=== PATIENT | female | born 1955 | race Caucasian/White ===

== ENCOUNTER → 2019-06-19 | Outpatient (CLI) | payer MEDICARE, OTHER | LOC: GMA MATASK 12:16 | PROVIDERS: ATTEND Family Medicine | DX: I10 Essential (primary) hypertension (principal) ==

== ENCOUNTER 2019-07-07 14:28 | Emergency (ER) | payer MEDICARE, OTHER ==
--- NOTE | 2019-07-07 15:51 | RAD ---
EXAM DESCRIPTION: Femur,Right (accession [id number]), Knee,Right Complete (accession [id number]) CLINICAL HISTORY: 64 years, Female, medial pain COMPARISON: None TECHNIQUE: Frontal and lateral views of the right femur and three views of the right knee was obtained. FINDINGS/IMPRESSION: Images of the right femur right knee demonstrate changes of right total knee arthroplasty in adequate alignment. An acute right distal femur nondisplaced periprosthetic fracture (medial metaphysis/supracondylar region) is present. No knee dislocation. Small knee joint effusion. Mild osteopenia. Electronically signed by: Keyur Alcantara DO 07/07/2019 3:49 PM CUSTOMER ADVISOR SPECIALIST
--- NOTE | 2019-07-07 15:51 | RAD ---
EXAM DESCRIPTION: Femur,Right (accession [id number]), Knee,Right Complete (accession [id number]) CLINICAL HISTORY: 64 years, Female, medial pain COMPARISON: None TECHNIQUE: Frontal and lateral views of the right femur and three views of the right knee was obtained. FINDINGS/IMPRESSION: Images of the right femur right knee demonstrate changes of right total knee arthroplasty in adequate alignment. An acute right distal femur nondisplaced periprosthetic fracture (medial metaphysis/supracondylar region) is present. No knee dislocation. Small knee joint effusion. Mild osteopenia. Electronically signed by: Keyur Alcantara DO 07/07/2019 3:49 PM PHOTOCOPYING EQUIPMENT REPAIRER
--- NOTE | 2019-07-07 16:16 | ED.PDOC ---
History of Present Illness - General Chief Complaint: Trauma Stated Complaint: Fall Time Seen by Provider: 07/07/19 14:32 Source: patient Exam Limitations: no limitations - History of Present Illness Initial Comments: the patient is a 64-year-old female who was walking yesterday and fell.she has been having pain in her right knee since that time. Pain appears to be in the medial aspect of the right knee. She has a had a right knee replacement 5 or 6 years ago in the past. She does not currently have an orthopedist apparently. She appears to be neurovascularly intact distally. Pain is as she described on palpation located medially. Passive range of motion and active range of motion without weight do not seem to cause much discomfort. Most pain is obtained with weight. she has mild abrasions from the fall but no lacerations that will require any sort of repair. No evidence of any infection. Timing/Duration: unsure Severity: moderate Improving Factors: nothing Worsening Factors: other - weightbearing Associated Symptoms: denies symptoms Allergies/Adverse Reactions: Allergies Codeine Allergy (Verified 07/07/19 14:35) Home Medications: Ambulatory Orders Lecrkeqzcalyk-Rarf-Ejdzglhoag [Fioricet] 1 ea PO Q8H PRN #21 tab 07/07/19 Review of Systems - Review of Systems Constitutional: States: no symptoms reported EENTM: States: no symptoms reported Respiratory: States: no symptoms reported Cardiology: States: no symptoms reported Gastrointestinal/Abdominal: States: no symptoms reported Genitourinary: States: no symptoms reported Musculoskeletal: States: see HPI Skin: States: no symptoms reported Neurological: States: no symptoms reported Endocrine: States: no symptoms reported All other Systems: No Change from Baseline Past Medical History (General) - Patient Medical History Hx Stroke: No Hx Cardiac Disorders: Yes - Hypercholesterolemia Hx Congestive Heart Failure: No Hx Hypertension: Yes Hx Thyroid Disease: Yes Hx Diabetes: No Hx Gastroesophageal Reflux: Yes Hx MRSA: No - Vaccination History Hx Influenza Vaccination: Yes - 2018 Hx Pneumococcal Vaccination: Yes - Social History Hx Tobacco Use: Yes - Quit 2014; Pt vapes Hx Alcohol Use: Yes - Occasional use Family Medical History - Family History Mother Living Status: Hx Cardiac Disease: Yes Physical Exam - Physical Exam General Appearance: Alert, No apparent distress Eye Exam: bilateral normal Ears, Nose, Throat: hearing grossly normal Neck: full range of motion Respiratory: no respiratory distress, no accessory muscle use Cardiovascular/Chest: normal peripheral pulses, no edema, other - egular rate Peripheral Pulses: dorsalis pedis,right: 2+, dorsalis pedis,left: 2+, posterior tibialis,right: 2+, posterior tibialis,left: 2+ Rectal Exam: deferred Extremity: normal range of motion - grossly, no calf tenderness, normal capillary refill, other - see history of present illness. 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 Progress - Progress Progress: 07/07/19 16:18 the patient is a 64-year-old female presenting after a fall yesterday with right knee pain to the medial aspect. X-ray confirms that there is a nondisplaced fracture just above the medial aspect of that knee replacement in the distal femur. The patient has been ambulating on it for a day already. I'm going to make the patient toe-touch weightbearing with crutches. I'm not going to completely immobilize the knee at this time, primarily for balance and fall prevention purposes. I do want her to follow-up with Dr. Cabello as soon as possible this coming week for further evaluation, to see if any further intervention is going to be required either now or down the road. ER warnings were given. Again it has been reiterated that she is not to bear weight of any significance on this leg and certainly not to bend it with any weightbearing. dimple [id number] Departure - Departure Clinical Impression: Femur fracture, left Qualifiers: Encounter type: initial encounter Femur location: distal, unspecified portion F racture type: closed Fracture morphology: unspecified fracture morphology Qualified Code(s): S72.402A - Unspecified fracture of lower end of left femur, initial encounter for closed fracture Disposition: Discharge to Home or Self Care Condition: Fair Departure Forms: ED Discharge - Pt. Copy, Patient Portal Self Enrollment Diet: regular diet Activity: no pushing/pulling with affected limb Referrals: Dinh Morales MD [Primary Care Provider] - 1-2 Weeks Prescriptions: Umpheiihzbozk-Bcte-Hnpsgufiix [Fioricet] 1 ea PO Q8H PRN #21 tab PRN Reason: Pain Home Medications: Ambulatory Orders Kwvulkcguqvjr-Vigt-Gtszgitpew [Fioricet] 1 ea PO Q8H PRN #21 tab 07/07/19 Additional Instructions: the patient is a 64-year-old female presenting after a fall yesterday with right knee pain to the medial aspect. X-ray confirms that there is a nondisplaced fracture just above the medial aspect of that knee replacement in the distal femur. The patient has been ambulating on it for a day already. I'm going to make the patient toe-touch weightbearing with crutches. I'm not going to completely immobilize the knee at this time, primarily for balance and fall prevention purposes. I do want her to follow-up with Dr. Cabello as soon as possible this coming week for further evaluation, to see if any further intervention is going to be required either now or down the road. ER warnings were given. Again it has been reiterated that she is not to bear weight of any significance on this leg and certainly not to bend it with any weightbearing.
[2019-07-07 16:41] VITALS: BP 113/55; TEMP 98; O2SAT 94
== END 2019-07-07 17:03 | disposition home or self-care (01) ==
LOC: ER 14:28
DX: S72.401A Unspecified fracture of lower end of right femur, initial encounter for closed fracture (principal); M85.80 Other specified disorders of bone density and structure, unspecified site; E78.00 Pure hypercholesterolemia, unspecified; I10 Essential (primary) hypertension; E07.9 Disorder of thyroid, unspecified; K21.9 Gastro-esophageal reflux disease without esophagitis; F17.290 Nicotine dependence, other tobacco product, uncomplicated; Z96.651 Presence of right artificial knee joint; Z88.5 Allergy status to narcotic agent; W18.30XA Fall on same level, unspecified, initial encounter; Y93.01 Activity, walking, marching and hiking; Y92.9 Unspecified place or not applicable

== ENCOUNTER → 2019-07-11 | Outpatient (CLI) | payer MEDICARE, OTHER ==
--- NOTE | 2019-07-11 12:59 | RAD ---
EXAM DESCRIPTION: Knee,Right 1 or 2 Views: CR/DR/XR. CLINICAL HISTORY: PAIN IN RIGHT KNEE COMPARISON: Right knee examination 07 July 2019. TECHNIQUE/FINDINGS: 2 views AP and lateral right knee. Right total knee arthroplasty has been performed. Customary position and near-anatomic alignment. Again seen is a supracondylar medial cortical fracture at the level of the distal right femoral shaft. Cortex shows more lateral displacement compared to the prior study. Minimal soft tissue swelling. No new fractures or other bony changes around the components. Minimal suprapatellar effusion. No loose bodies.. IMPRESSION: The supracondylar cortex of the distal medial right femur shows increased displacement below the fracture site compared to the prior study. Components of the total knee arthroplasty are stable. Electronically signed by: Les Villeda MD 07/11/2019 12:57 PM [facility]
== END ==
LOC: RAD 09:22
PROVIDERS: ATTEND Orthopaedic Surgery
DX: S72.401G Unspecified fracture of lower end of right femur, subsequent encounter for closed fracture with delayed healing (principal); Z96.651 Presence of right artificial knee joint

== ENCOUNTER → 2019-07-18 | Outpatient (CLI) | payer MEDICARE, OTHER ==
--- NOTE | 2019-07-19 07:13 | RAD ---
Frontal and lateral views of the right knee. Indication: PERIPROSTHETIC FRACTURE AROUND INTERNAL PROSTHETIC RIGHT KNEE ESTELLA Comparison: July 11, 2019 Impression: Postsurgical changes of right total knee arthroplasty and patellar resurfacing redemonstrated. Moderate size knee effusion. The previously noted fracture involving the medial femoral metaphysis is redemonstrated with stable alignment. No significant union identified. Electronically signed by: Deep Momin MD 07/19/2019 7:11 AM [facility]
== END ==
LOC: RAD 11:06
PROVIDERS: ATTEND Orthopaedic Surgery
DX: M97.11XD Periprosthetic fracture around internal prosthetic right knee joint, subsequent encounter (principal); Z98.890 Other specified postprocedural states; Z96.651 Presence of right artificial knee joint

== ENCOUNTER 2019-07-19 05:38 | Day surgery (SDC) | payer MEDICARE, OTHER ==
[2019-07-19] MEDS ORDERED: LACTATED RINGERS 1,000 ML ONE (05:44)
[2019-07-19] MEDS ORDERED: MIDAZOLAM INJ 2 MG/2 ML VIAL ONE (06:50)
[2019-07-19] MEDS ORDERED: HYDROmorphone HCL INJ 2 MG/ML VIAL ONE (06:50)
[2019-07-19] MEDS ORDERED: KETAMINE HCL 100 MG/ML VIAL ONE (06:50)
[2019-07-19] MEDS ORDERED: PROPOFOL 200 MG/20 ML VIAL IV ONE (07:00)
[2019-07-19] MEDS ORDERED: DEXAMETHASONE INJ 10 MG/ML VIAL ONE (07:00)
[2019-07-19] MEDS ORDERED: LIDOCAINE 1% 10 ML VIAL INJ ONE (07:00)
[2019-07-19] MEDS ORDERED: SODIUM CHLORIDE 0.9% 50 ML VIAL ONE (07:00)
[2019-07-19] MEDS ORDERED: HYDROcodone 5MG/APAP 325MG 1 EA TAB ONE (07:51)
--- NOTE | 2019-07-19 08:16 | OP ---
DATE OF PROCEDURE: 07/19/19 PREOPERATIVE DIAGNOSIS: 1. Right distal femur periprosthetic fracture. POSTOPERATIVE DIAGNOSIS: 1. Right distal femur periprosthetic fracture. PROCEDURE: 1. Closed reduction of right distal femur. SURGEON: Genaro Cabello MD. SENIOR SAFETY SUPPORT MANAGER: Les Sanchez CST, SA-C. ANESTHESIA: Conscious sedation. COMPLICATIONS: None. FINDINGS: Displaced fracture of the distal femur. INDICATION: Ms. Morris has had a history of a fracture which she sustained about 10 days ago. She had been seen in the Emergency Room and was not put in any type of brace. She presented to us and the deformity of the distal femur was noted. I had her obtain the previous x-rays and those previous x-rays did demonstrate a significant change compared to current x-rays. Given the periprosthetic nature of the fracture, we discussed different options. With regards to hers, because she had a posterior stabilized prosthesis, I felt that it would probably be best to at least give this a shot at nonoperative treatment. To that end, we discussed the risks, benefits and alternatives to closed reduction and she gave informed consent for that. PROCEDURE: The patient was brought to the Operating Room and placed in the supine position. Sedation was administered and the fracture was reduced under fluoroscopic imaging. The leg was then placed in an immobilizer. The patient was allowed to recover from the anesthetic and then taken back to the Day Surgery Unit. POSTOPERATIVE PLAN: She will be non-weightbearing and will keep the immobilizer in place at all times. She will followup with us in about 10 days for repeat x- rays. #[id number] MTDD
[2019-07-19 09:28] VITALS: BP 138/73; TEMP 97.3; O2SAT 95
--- NOTE | 2019-07-22 08:10 | RAD ---
EXAM DESCRIPTION: Fluoroscopy Up to 1Hr CLINICAL HISTORY: CLOSED REDUCTION COMPARISON: July 18, 2019 IMPRESSION: Spot fluoroscopic images of the right knee (by history) show total knee arthroplasty without obvious complicating features. Exam is limited in detail secondary to intraoperative fluoroscopy. The distal femoral fracture seen on previous x-ray is not appreciated on fluoroscopic images. Less than 11 seconds of intraoperative fluoroscopy time. No extra exposure images are obtained. Electronically signed by: Luis E Whitley MD 07/22/2019 8:08 AM [facility]
== END 2019-07-19 09:15 | disposition home or self-care (01) ==
LOC: AMB 05:38
PROVIDERS: ATTEND Orthopaedic Surgery
DX: M97.11XA Periprosthetic fracture around internal prosthetic right knee joint, initial encounter (principal); F32.9 Major depressive disorder, single episode, unspecified; I10 Essential (primary) hypertension; E03.9 Hypothyroidism, unspecified; E78.2 Mixed hyperlipidemia; K21.9 Gastro-esophageal reflux disease without esophagitis; J45.909 Unspecified asthma, uncomplicated; Z90.710 Acquired absence of both cervix and uterus; Z88.5 Allergy status to narcotic agent; Z90.49 Acquired absence of other specified parts of digestive tract; Z96.651 Presence of right artificial knee joint; Z87.891 Personal history of nicotine dependence; Z79.899 Other long term (current) drug therapy
CPT/HCPCS: 01340; 27510; 76000; 80307; A4216; J1100; J1170; J2250; J3490; J7120

== ENCOUNTER → 2019-07-29 | Outpatient (CLI) | payer MEDICARE, OTHER ==
--- NOTE | 2019-07-29 13:00 | RAD ---
EXAM DESCRIPTION: Knee,Right 1 or 2 Views CLINICAL HISTORY: PERIPROSTHETIC FRACTURE AROUND INTERNAL PROSTHETIC RIGHT KNEE COMPARISON: 18 July 2019 TECHNIQUE: 2 views right FINDINGS: Right total knee arthroplasty is observed. Exam reveals a fracture extending through the medial condyle the right femur. The fracture is unchanged when compared to the prior. No significant callus formation is detected. Slight soft tissue swelling is noted. No joint effusion is seen. IMPRESSION: 1. Right total knee arthroplasty. 2. Distal right femur fracture unchanged. Electronically signed by: Danie Flowers MD 07/29/2019 12:59 PM [facility]
== END ==
LOC: RAD 10:37
PROVIDERS: ATTEND Orthopaedic Surgery
DX: M97.11XD Periprosthetic fracture around internal prosthetic right knee joint, subsequent encounter (principal); Z96.651 Presence of right artificial knee joint

== ENCOUNTER → 2019-12-18 | Outpatient (CLI) | payer MEDICARE, OTHER | LOC: GMA MATASK 11:35 | PROVIDERS: ATTEND Family Medicine | DX: E03.9 Hypothyroidism, unspecified (principal); I10 Essential (primary) hypertension ==